=== PATIENT | male | born 1955 | race African-American/Black ===

== ENCOUNTER 2018-02-13 17:56 | Inpatient (IN) | payer BC ==
[2018-02-13] MEDS ORDERED: ACETAMINOPHEN 325 MG TABLET PO ONE (18:18)
--- NOTE | 2018-02-13 18:20 | ER Document Report ---
ED Medical Screen (RME) - General Chief Complaint: Altered Mental Status Stated Complaint: ALTERED MENTAL STATUS Time Seen by Provider: 02/13/18 18:12 Notes: RAPID MEDICAL EVALUATION DISCLOSURE I have seen this patient as part of a Rapid Medical Evaluation and, if applicable, placed any initially appropriate orders. The patient will be seen and fully evaluated, including a full history and physical exam, by a provider ( in Main ED or Fast Track) when a room becomes available. 62-year-old male PMH prostate cancer here with family who states he has been altered over the past day or 2. Yesterday he complained of some dysuria. He also felt like he had a fever but they did not measure his temperature. He is acting as though he is "acting spacey". He has no prior history of bladder infections. They deny any other symptoms. He is actively receiving chemo and radiation. EXAM Somnolent CTAB Tachycardic Mild lower abdominal TTP TRAVEL OUTSIDE OF THE [place] IN LAST 30 DAYS: No - Related Data Allergies/Adverse Reactions: codeine Allergy (Verified 02/13/18 17:58) metformin Allergy (Verified 02/13/18 17:58) Past Medical History - Social History Chew tobacco use (# tins/day): No Frequency of alcohol use: None Drug Abuse: None - Past Medical History Cardiac Medical History: Reports: Hx Hypertension Endocrine Medical History: Reports: Hx Diabetes Mellitus Type 2 Renal/ Medical History: Denies: Hx Peritoneal Dialysis Past Surgical History: Reports: Hx Orthopedic Surgery Physical Exam - Vital signs Vitals: Temp Pulse Resp BP Pulse Ox 100.6 F H 115 H 20 114/68 93 02/13/18 18:01 02/13/18 18:01 02/13/18 18:01 02/13/18 18:01 02/13/18 18:01 Course - Vital Signs Vital signs: Temp Pulse Resp BP Pulse Ox 100.6 F H 115 H 20 114/68 93 02/13/18 18:01 02/13/18 18:01 02/13/18 18:01 02/13/18 18:01 02/13/18 18:01 Doctor's Discharge - Discharge Referrals: LOCALMD,NO [Primary Care Provider] - Follow up as needed
--- NOTE | 2018-02-13 18:46 | RADIOLOGY REPORT (SQ) ---
EXAM DESCRIPTION: CHEST 2 VIEWS COMPLETED DATE/TIME: 02/13/2018 6:28 pm REASON FOR STUDY: EVAL PNEUMONIA COMPARISON: None. EXAM PARAMETERS: NUMBER OF VIEWS: two views TECHNIQUE: Digital Frontal and Lateral radiographic views of the chest acquired. RADIATION DOSE: NA LIMITATIONS: none FINDINGS: LUNGS AND PLEURA: Possible 15 mm nodule in the right lung laterally. MEDIASTINUM AND HILAR STRUCTURES: No masses or contour abnormalities. HEART AND VASCULAR STRUCTURES: Heart normal size. No evidence for failure. BONES: No acute findings. HARDWARE: None in the chest. OTHER: No other significant finding. IMPRESSION: Possible right pulmonary nodule as described. TECHNICAL DOCUMENTATION: JOB ID: [id number] [employer]- All Rights Reserved Reading location - IP/workstation name: [email or web address]
[2018-02-13 19:18] LABS: ABSOLUTE BASOPHILS # (AUTO) 0.1 10^3/uL (0.0-0.2); ABSOLUTE LYMPHOCYTES (AUTO) 1.7 10^3/uL (0.5-4.7); ABSOLUTE MONOCYTES (AUTO) 1.2 10^3/uL (0.1-1.4); ABSOLUTE NEUT (AUTO) 7.4 10^3/uL (1.7-8.2); BASOPHILS % (AUTO) 0.8 % (0-2); EOSINOPHILS % (AUTO) 0.1 % (0-6); HEMATOCRIT 40.7 % (37.9-51.0); HEMOGLOBIN 13.5 g/dL (13.5-17.0); LYMPHOCYTES % (AUTO) 16.7 % (13-45); MEAN CORPUSCULAR HEMOGLOBIN 28.1 pg (27.0-33.4); MEAN CORPUSCULAR HGB CONC 33.2 g/dL (32.0-36.0); MEAN CORPUSCULAR VOLUME 85 fl (80-97); MONOCYTES % (AUTO) 11.9 % (3-13); PLATELET COUNT 267 10^3/uL (150-450); RED CELL DISTRIBUTION WIDTH 15.5 % (11.5-14.0); SEGMENTED NEUTROPHILS % (AUTO) 70.5 % (42-78); TOTAL CELLS COUNTED % (AUTO) 100 %; WHITE BLOOD COUNT 10.4 10^3/uL (4.0-10.5)
--- NOTE | 2018-02-13 19:31 | RADIOLOGY REPORT (SQ) ---
EXAM DESCRIPTION: CT HEAD WITHOUT COMPLETED DATE/TIME: 02/13/2018 7:22 pm REASON FOR STUDY: confusion, cancer; eval COMPARISON: None. TECHNIQUE: Axial images acquired through the brain without intravenous contrast. Images reviewed wi th bone, brain and subdural windows. Additional sagittal and coronal reconstructions were generated. Images stored on PACS. All CT scanners at this facility use dose modulation, iterative reconstruction, and/or weight based d osing when appropriate to reduce radiation dose to as low as reasonably achievable (ALARA). [facility]: Dose Right [facility]: CareDose [facility]: Dose Right [facility]: Teradose 4D [facility]: MailLift RADIATION DOSE: mGy. LIMITATIONS: Evaluation for malignancy limited by lack of IV contrast. FINDINGS: VENTRICLES: Normal size and contour. CEREBRUM: No masses. No hemorrhage. No midline shift. No evidence for acute infarction. Normal gra y/white matter differentiation. No areas of low density in the white matter. CEREBELLUM: No masses. No hemorrhage. No alteration of density. No evidence for acute infarction. EXTRAAXIAL SPACES: No fluid collections. No masses. ORBITS AND GLOBE: No intra- or extraconal masses. Normal contour of globe without masses. CALVARIUM: No fracture. PARANASAL SINUSES: No fluid or mucosal thickening. SOFT TISSUES: No mass or hematoma. OTHER: No other significant finding. IMPRESSION: NORMAL BRAIN CT WITHOUT CONTRAST. Limited by lack of IV contrast. EVIDENCE OF ACUTE STROKE: NO. COMMENT: Quality ID # [id number]: Final reports with documentation of one or more dose reduction techniques (e.g., Automated exposure control, adjustment of the mA and/or kV according to patient size, use of iterative reconstruction technique) TECHNICAL DOCUMENTATION: JOB ID: [id number] [employer]- All Rights Reserved Reading location - IP/workstation name: [email or web address]
[2018-02-13 19:46] LABS: ALANINE AMINOTRANSFERASE 28 U/L (21-72); ALBUMIN 4.6 g/dL (3.5-5.0); ALKALINE PHOSPHATASE 39 U/L (38-126); ANION GAP 16 (5-19); ASPARTATE AMINO TRANSFERASE 51 U/L (17-59); BILIRUBIN,DIRECT 0.6 mg/dL (0.0-0.4); BLOOD UREA NITROGEN 29 mg/dL (7-20); CALCIUM 10.2 mg/dL (8.4-10.2); CARBON DIOXIDE 25 mmol/L (22-30); CHLORIDE 101 mmol/L (98-107); GLUCOSE 71 mg/dL (75-110); LIPASE 113.8 U/L (23-300); SODIUM 141.7 mmol/L (137-145); TOTAL PROTEIN 7.8 g/dL (6.3-8.2)
[2018-02-13] MEDS ORDERED: NORMAL SALINE 1000 ML 1,000 ML IV ONE ×2 (20:17→20:25)
[2018-02-13] MEDS ORDERED: CEFEPIME 2 GM/D5W RTU 2 GM/50 ML RTUPB IV ONE (20:24)
--- NOTE | 2018-02-13 20:24 | ER Document Report ---
ED General - General Chief Complaint: Altered Mental Status Stated Complaint: ALTERED MENTAL STATUS Time Seen by Provider: 02/13/18 18:12 Mode of Arrival: Ambulatory Information source: Patient Notes: Patient is a 62-year-old male presenting with dysuria, fever and not acting himself according to his . Patient's reports that last night patient began having burning with urination and had chills. Patient did go to work this morning however he was sent home as they stated that he did not appear well. Patient currently being treated with chemotherapy for prostate cancer. Patient's other past medical history includes hypertension and diabetes. Patient denies any vomiting however patient reports 2 episodes of diarrhea today. No recent antibiotic use. TRAVEL OUTSIDE OF THE [place] IN LAST 30 DAYS: No - Related Data Allergies/Adverse Reactions: codeine Allergy (Verified 02/13/18 17:58) metformin Allergy (Verified 02/13/18 17:58) Past Medical History - General Information source: Patient, Relative - Social History Smoking Status: Never Smoker Chew tobacco use (# tins/day): No Frequency of alcohol use: None Drug Abuse: None Lives with: Spouse/Significant other Family History: Reviewed & Not Pertinent Patient has suicidal ideation: No Patient has homicidal ideation: No - Past Medical History Cardiac Medical History: Reports: Hx Hypertension Endocrine Medical History: Reports: Hx Diabetes Mellitus Type 2 Renal/ Medical History: Reports: Other - Prostate cancer. Denies: Hx Peritoneal Dialysis Past Surgical History: Reports: Hx Orthopedic Surgery - Immunizations Immunizations up to date: Yes Review of Systems - Review of Systems Constitutional: Chills, Fever, Weakness EENT: No symptoms reported Cardiovascular: No symptoms reported Respiratory: No symptoms reported Gastrointestinal: Diarrhea. denies: Nausea, Vomiting Genitourinary: Burning, Dysuria. denies: Flank pain Male Genitourinary: See HPI Musculoskeletal: No symptoms reported Skin: No symptoms reported Hematologic/Lymphatic: No symptoms reported Neurological/Psychological: Confusion Physical Exam - Vital signs Vitals: Temp Pulse Resp BP Pulse Ox 100.6 F H 115 H 20 114/68 93 02/13/18 18:01 02/13/18 18:01 02/13/18 18:01 02/13/18 18:01 02/13/18 18:01 Course - Re-evaluation Re-evalutation: 62-year-old male patient presenting with chief complaint of dysuria, fever and altered mental status. Patient's reports that the symptoms began last night and worsened today. Patient currently being treated with chemotherapy for prostate cancer. On arrival to the emergency department patient is febrile at 100.6, tachycardic at 115, normotensive with blood pressure 114/68. Patient mildly hypoxic at 93% on room air, patient's denies any history of any respiratory issues to include CHF or COPD. On initial evaluation patient appears very weak, lung sounds are clear bilaterally, patient has no CVA tenderness. Patient is able to answer all questions however he is slightly slow to respond. Initial laboratory workup reveals an unremarkable CBC, no leukocytosis. Comprehensive metabolic panel with BUN of 29, creatinine 1.37. CMP otherwise unremarkable. Lipase is normal. Lactic acid is 1.4. Patient was given 650 mg of Tylenol in triage. Awaiting temperature recheck. Patient's remains mildly tachycardic with a heart rate of 105 as well as mild hypotension with a blood pressure of 102/52. Patient was placed on 2 L nasal cannula for resting oxygen saturation of 92%. Early consultation was done with Dr. Fink, as I am concerned this patient is septic. No urinalysis resulted yet. Patient will be given 2 L normal saline and will be started on cefepime. Will monitor closely. Patient and family members are up-to-date on plan of care. Urinalysis reveals positive blood, positive nitrates and 139 white blood cells. Consulted Dr. Ledesma, hospitalist for admission, patient accepted. - Vital Signs Vital signs: Temp Pulse Resp BP Pulse Ox 101.1 F H 90 19 84/48 L 100 02/14/18 01:41 02/14/18 01:41 02/14/18 00:26 02/14/18 01:41 02/14/18 01:41 - Laboratory Result Diagrams: 02/13/18 18:44 02/13/18 18:44 Laboratory results interpreted by me: 02/13/18 02/13/18 02/13/18 18:44 18:44 20:36 RDW 15.5 H BUN 29 H Creatinine 1.37 H Est GFR (Non-Af Amer) 53 L Glucose 71 L Direct Bilirubin 0.6 H Urine Protein 100 H Urine Glucose (UA) 150 H Urine Ketones TRACE H Urine Blood MODERATE H Urine Nitrite POSITIVE H Urine Urobilinogen 4.0 H Ur Leukocyte Esterase SMALL H - Diagnostic Test Radiology reviewed: Reports reviewed - EKG Interpretation by Me EKG shows normal: Sinus rhythm Rate: Normal Rhythm: NSR Discharge - Discharge Clinical Impression: Urinary tract infection Qualifiers: Urinary tract infection type: site unspecified Hematuria presence: with hematuria Qualified Code(s): N39.0 - Urinary tract infection, site not specified Condition: Stable Disposition: ADMITTED INPATIENT Admitting Provider: Hospitalist Unit Admitted: Telemetry
[2018-02-13 21:07] LABS: APPEARANCE,URINE CLOUDY; BILIRUBIN,URINE NEGATIVE (NEGATIVE); COLOR,URINE YELLOW; GLUCOSE, URINE 150 mg/dL (NEGATIVE); KETONES,URINE TRACE mg/dL (NEGATIVE); LEUKOCYTE ESTERASE,URINE SMALL (NEGATIVE); NITRITE,URINE POSITIVE (NEGATIVE); PROTEIN,URINE 100 mg/dL (NEGATIVE); URINE SPECIFIC GRAVITY 1.023
[2018-02-13] MEDS ORDERED: ONDANSETRON 4 MG TAB.RAPDIS PO PRN (21:43)
[2018-02-13] MEDS ORDERED: GLUCAGON,HUMAN RECOMB 1 MG INJ IM PRN (21:48)
[2018-02-13] MEDS ORDERED: DEXTROSE 50%-WATER 25 GM/50 ML DISP.SYRIN IV PRN ×2 (21:48)
[2018-02-13] MEDS ORDERED: INSULIN LISPRO 100 UNIT/ML 3 ML VIAL SUBCUT PRN (21:48)
[2018-02-13] MEDS ORDERED: DEXTROSE 40% GEL 15 GM TUBE PO PRN ×2 (21:48)
[2018-02-13] MEDS ORDERED: NORMAL SALINE 1000 ML 1,000 ML IV PRN (21:49)
--- NOTE | 2018-02-13 21:59 | PDOC H&P ---
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 Patient has also associated 2 episodes watery diarrhea. His urine analysis shows pyuria, positive for nitrite and leukocyte esterase. His BMP shows creatinine of 1.37. Endorses headache but no dizziness, blurring of vision or any seizure activity. Past Medical History Cardiac Medical History: Reports: Hypertension Endocrine Medical History: Reports: Diabetes Mellitus Type 2 Renal/ Medical History: Reports: Other - Prostate cancer Past Surgical History Past Surgical History: Reports: Orthopedic Surgery Social History Lives with: Spouse/Significant other Smoking Status: Never Smoker Frequency of Alcohol Use: None Hx Recreational Drug Use: No Drugs: None - Advance Directive Resuscitation Status: Full Code Family History Family History: Reviewed & Not Pertinent, Hypertension Parental Family History Reviewed: Yes Children Family History Reviewed: Yes Sibling(s) Family History Reviewed.: Yes Medication/Allergy Allergies/Adverse Reactions: codeine Allergy (Verified 02/13/18 17:58) metformin Allergy (Verified 02/13/18 17:58) Review of Systems Constitutional: PRESENT: fatigue, fever(s) Eyes: ABSENT: visual disturbances Respiratory: ABSENT: cough, hemoptysis Genitourinary: PRESENT: dysuria Musculoskeletal: PRESENT: as per HPI Neurological: PRESENT: as per HPI Psychiatric: PRESENT: as per HPI Physical Exam Vital Signs: Temp Pulse Resp BP Pulse Ox 100.6 F H 115 H 14 141/76 H 98 02/13/18 18:01 02/13/18 18:01 02/13/18 19:08 02/13/18 19:10 02/13/18 20:18 General appearance: PRESENT: no acute distress, well-developed, well-nourished Head exam: PRESENT: atraumatic, normocephalic Eye exam: PRESENT: conjunctiva pink, EOMI, PERRLA. ABSENT: scleral icterus Ear exam: PRESENT: normal external ear exam Mouth exam: PRESENT: moist, tongue midline Neck exam: ABSENT: carotid bruit, JVD, lymphadenopathy, thyromegaly Respiratory exam: PRESENT: clear to auscultation cali. ABSENT: rales, rhonchi, wheezes Cardiovascular exam: PRESENT: RRR. ABSENT: diastolic murmur, rubs, systolic murmur Pulses: PRESENT: normal dorsalis pedis pul Vascular exam: PRESENT: normal capillary refill GI/Abdominal exam: PRESENT: normal bowel sounds, soft. ABSENT: distended, guarding, mass, organolmegaly, rebound, tenderness Rectal exam: PRESENT: deferred Extremities exam: PRESENT: full ROM. ABSENT: calf tenderness, clubbing, pedal edema Neurological exam: PRESENT: alert, awake, oriented to person, oriented to place , oriented to time, oriented to situation. ABSENT: motor sensory deficit Psychiatric exam: PRESENT: appropriate affect, normal mood. ABSENT: homicidal ideation, suicidal ideation Skin exam: PRESENT: dry, intact, warm. ABSENT: cyanosis, rash Results Impressions: Chest X-Ray 02/13/18 18:17 IMPRESSION: Possible right pulmonary nodule as described. Head CT 02/13/18 18:17 IMPRESSION: NORMAL BRAIN CT WITHOUT CONTRAST. Limited by lack of IV contrast. EVIDENCE OF ACUTE STROKE: NO. Assessment & Plan - Diagnosis (1) Complicated urinary tract infection Is this a current diagnosis for this admission?: Yes Plan: Patient has been started on ceftriaxone. We will adjust his antibiotics based on his clinical response and urine culture result. (2) Acute kidney injury Is this a current diagnosis for this admission?: Yes Plan: It seems tomorrow for prerenal azotemia. Will gently hydrate him. (3) Type 2 diabetes mellitus Is this a current diagnosis for this admission?: Yes Plan: Patient has been started on sliding scale. And will continue his home medication (4) Hypertension Is this a current diagnosis for this admission?: Yes Plan: Continue his home medication. (5) Prostate cancer Is this a current diagnosis for this admission?: Yes Plan: Management per his primary oncologist - Inpatient Certification Medical Necessity: Need Close Monitoring Due to Risk of Patient Decompensation, Need For IV Fluids, Need for IV Antibiotics
--- NOTE | 2018-02-14 00:13 | EKG REPORT ---
SEVERITY:- NORMAL ECG - SINUS RHYTHM : Confirmed by: Eve Gabriel MD 14-Feb-2018 00:12:49
[2018-02-14] MEDS: ACETAMINOPHEN 325 MG TABLET PO PRN ×2 (00:21→20:11)
[2018-02-14] MEDS: NORMAL SALINE 1000 ML 1,000 ML IV SCH ×2 (02:36→02:39)
[2018-02-14] MEDS ORDERED: NORMAL SALINE 1000 ML 1,000 ML IV ONE (02:45)
[2018-02-14 06:34] LABS: ABSOLUTE LYMPHOCYTES (AUTO) 0.4 10^3/uL (0.5-4.7); ABSOLUTE MONOCYTES (AUTO) 0.9 10^3/uL (0.1-1.4); ABSOLUTE NEUT (AUTO) 5.4 10^3/uL (1.7-8.2); BASOPHILS % (AUTO) 0.7 % (0-2); HEMATOCRIT 31.5 % (37.9-51.0); LYMPHOCYTES % (AUTO) 6.5 % (13-45); MEAN CORPUSCULAR HEMOGLOBIN 28.3 pg (27.0-33.4); MEAN CORPUSCULAR HGB CONC 33.4 g/dL (32.0-36.0); MEAN CORPUSCULAR VOLUME 85 fl (80-97); MONOCYTES % (AUTO) 13.2 % (3-13); PLATELET COUNT 198 10^3/uL (150-450); RED BLOOD COUNT 3.71 10^6/uL (4.35-5.55); RED CELL DISTRIBUTION WIDTH 16.1 % (11.5-14.0); SEGMENTED NEUTROPHILS % (AUTO) 79.6 % (42-78); TOTAL CELLS COUNTED % (AUTO) 100 %; WHITE BLOOD COUNT 6.8 10^3/uL (4.0-10.5)
[2018-02-14 06:38] LABS: ANION GAP 10 (5-19); BLOOD UREA NITROGEN 27 mg/dL (7-20); CALCIUM 7.9 mg/dL (8.4-10.2); CARBON DIOXIDE 24 mmol/L (22-30); CHLORIDE 108 mmol/L (98-107); GLUCOSE 77 mg/dL (75-110); POTASSIUM 3.6 mmol/L (3.6-5.0)
[2018-02-14 06:54] LABS: HEMOGLOBIN 10.5 g/dL (13.5-17.0)
[2018-02-14] MEDS: LANSOPRAZOLE 30 MG TAB.RAP.DR PO SCH (07:04)
[2018-02-14] MEDS ORDERED: INSULIN LISPRO 100 UNIT/ML 3 ML VIAL SUBCUT PRN (08:46)
[2018-02-14] MEDS: LACTOBACILLUS ACIDOPHILUS 250 MG TAB PO SCH ×2 (10:25→17:47)
[2018-02-14] MEDS: CEFTRIAXONE 2 GM/D5W RTU 2 GM/50 ML RTUPB IV SCH (10:25)
[2018-02-14] MEDS: ENOXAPARIN SODIUM INJ 40 MG/0.4 ML DISP.SYRIN SUBCUT SCH (10:25)
[2018-02-14] MEDS ORDERED: INSULIN LISPRO 100 UNIT/ML 3 ML VIAL SUBCUT SCH (11:00)
[2018-02-14] MEDS ORDERED: BUTALB/ACETAMINOPHEN/CAFFEINE 1 TAB EACH PO ONE (11:11)
[2018-02-14] MEDS ORDERED: BUTALB/ACETAMINOPHEN/CAFFEINE 1 TAB EACH PO PRN (11:12)
--- NOTE | 2018-02-14 11:55 | PDOC PROGRESS REPORT ---
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 The patient was diagnosed with urinary tract infection and acute renal failure and was started on Rocephin and IV fluids. He is complaining of a headache and reduced appetite. Dysuria improved. Reason For Visit: COMPLICATED UTI. ACUTE KIDNEY INJURY Physical Exam Vital Signs: Temp Pulse Resp BP Pulse Ox 98.3 F 91 19 99/52 L 100 02/14/18 06:53 02/14/18 06:53 02/14/18 00:26 02/14/18 06:53 02/14/18 03:00 Intake & Output 02/13/18 02/14/18 02/15/18 06:59 06:59 06:59 Intake Total 22 Output Total 400 Balance -378 Weight 102.4 kg General appearance: PRESENT: no acute distress, well-developed, well-nourished Head exam: PRESENT: normocephalic Ear exam: PRESENT: normal external ear exam Mouth exam: PRESENT: moist Neck exam: ABSENT: tracheal deviation Respiratory exam: PRESENT: symmetrical, unlabored. ABSENT: wheezes Cardiovascular exam: PRESENT: RRR GI/Abdominal exam: PRESENT: normal bowel sounds, soft. ABSENT: tenderness Rectal exam: PRESENT: deferred Extremities exam: ABSENT: pedal edema Neurological exam: PRESENT: alert, awake, oriented to person, oriented to place , oriented to time, oriented to situation Psychiatric exam: PRESENT: appropriate affect Results Laboratory Results: 02/14/18 05:14 02/14/18 05:14 02/14/18 02/14/18 05:14 05:14 WBC 6.8 RBC 3.71 L Hgb 10.5 L D Hct 31.5 L MCV 85 MCH 28.3 MCHC 33.4 RDW 16.1 H Plt Count 198 Seg Neutrophils % 79.6 H Lymphocytes % 6.5 L Monocytes % 13.2 H Eosinophils % 0.0 Basophils % 0.7 Absolute Neutrophils 5.4 Absolute Lymphocytes 0.4 L Absolute Monocytes 0.9 Absolute Eosinophils 0.0 Absolute Basophils 0.0 Sodium 142.0 Potassium 3.6 Chloride 108 H Carbon Dioxide 24 Anion Gap 10 BUN 27 H Creatinine 1.26 H Est GFR ( Amer) > 60 Est GFR (Non-Af Amer) 58 L Glucose 77 Calcium 7.9 L Impressions: Chest X-Ray 02/13/18 18:17 IMPRESSION: Possible right pulmonary nodule as described. Head CT 02/13/18 18:17 IMPRESSION: NORMAL BRAIN CT WITHOUT CONTRAST. Limited by lack of IV contrast. EVIDENCE OF ACUTE STROKE: NO. Assessment & Plan - Diagnosis (1) Acute kidney injury Is this a current diagnosis for this admission?: Yes Plan: Continue IV fluids. Monitor renal function. Avoid nephrotoxic agents. (2) Complicated urinary tract infection Is this a current diagnosis for this admission?: Yes Plan: Day 2 of antibiotics. Follow-up on urine culture. (3) Hypertension Is this a current diagnosis for this admission?: Yes Plan: Stable. Blood pressures are low normal. (4) Prostate cancer Is this a current diagnosis for this admission?: Yes Plan: Outpatient urology follow-up- Dr. Durán (5) Type 2 diabetes mellitus Is this a current diagnosis for this admission?: Yes Plan: Insulin sliding scale. (6) Headache Is this a current diagnosis for this admission?: Yes Plan: Fioricet prn - Time Time Spent with patient: 25-34 minutes
[2018-02-15 05:30] LABS: BLOOD UREA NITROGEN 17 mg/dL (7-20); CALCIUM 7.9 mg/dL (8.4-10.2); GLUCOSE 89 mg/dL (75-110); PHOSPHORUS 1.8 mg/dL (2.5-4.5)
[2018-02-15 05:42] LABS: HEMOGLOBIN 9.8 g/dL (13.5-17.0); MEAN CORPUSCULAR HEMOGLOBIN 28.7 pg (27.0-33.4); MEAN CORPUSCULAR HGB CONC 33.9 g/dL (32.0-36.0); MEAN CORPUSCULAR VOLUME 85 fl (80-97); PLATELET COUNT 170 10^3/uL (150-450); RED BLOOD COUNT 3.42 10^6/uL (4.35-5.55); RED CELL DISTRIBUTION WIDTH 16.1 % (11.5-14.0)
[2018-02-15 05:47] LABS: CARBON DIOXIDE 27 mmol/L (22-30); CHLORIDE 111 mmol/L (98-107); POTASSIUM 3.8 mmol/L (3.6-5.0); SODIUM 143.5 mmol/L (137-145)
[2018-02-15 05:53] LABS: ANION GAP 6 (5-19)
[2018-02-15 06:11] LABS: WHITE BLOOD COUNT 2.9 10^3/uL (4.0-10.5)
[2018-02-15 06:28] LABS: ABSOLUTE LYMPHOCYTES# (MANUAL) 0.3 10^3/uL (0.5-4.7); ABSOLUTE MONOCYTES # (MANUAL) 0.5 10^3/uL (0.1-1.4); BASOPHILS % (MANUAL) 1 % (0-2); EOSINOPHILS % (MANUAL) 0 % (0-6); LYMPHOCYTES % (MANUAL) 11 % (13-45); MONOCYTES % (MANUAL) 18 % (3-13); SEGMENTED NEUTROPHILS % (MAN) 70 % (42-78); TOTAL CELLS COUNTED 100
[2018-02-15 06:29] LABS: ANISOCYTOSIS 1+; OVALOCYTES 1+; PLATELET COMMENT ADEQUATE; POLYCHROMASIA 1+
[2018-02-15] MEDS: LANSOPRAZOLE 30 MG TAB.RAP.DR PO SCH (06:40)
[2018-02-15] MEDS ORDERED: ABIRATERONE ACETATE 1000 MG PO SCH (08:00)
[2018-02-15] MEDS ORDERED: (PENDING PHARMACY ID) (Saxagliptin Hcl [Onglyza] 5 MG) PO SCH (10:00)
[2018-02-15] MEDS ORDERED: (PENDING PHARMACY ID) (Fenofibric Acid (Choline) [Fenofibric Acid] 135 MG) PO SCH (10:00)
[2018-02-15] MEDS: CEFTRIAXONE 2 GM/D5W RTU 2 GM/50 ML RTUPB IV SCH (10:38)
[2018-02-15] MEDS: ENOXAPARIN SODIUM INJ 40 MG/0.4 ML DISP.SYRIN SUBCUT SCH (10:38)
[2018-02-15] MEDS: LACTOBACILLUS ACIDOPHILUS 250 MG TAB PO SCH ×2 (10:39→17:56)
[2018-02-15] MEDS: PHOSPHORUS #1 250 MG TABLET PO SCH ×2 (10:39→15:57)
[2018-02-15] MEDS: PREDNISONE 5 MG TABLET PO SCH (10:40)
[2018-02-15] MEDS: FENOFIBRATE NANOCRYSTALLIZED 145 MG TABLET PO SCH (10:43)
[2018-02-15] MEDS: SITAGLIPTIN PHOSPHATE 50 MG TABLET PO SCH (10:43)
--- NOTE | 2018-02-15 11:42 | PDOC CONSULTATION ---
Consultation Consult Date: 02/15/18 Consult reason:: urinary tract infection, prostate cancer. History of Present Illness Admission Date/PCP: 02/13/18 21:48 ANGEL MAJOR MD History of Present Illness: MELECIO FUENTES is a 62 year old male that became lethargic and confused on . He was brought to the ER by family and found to be septic with a urinary source and admitted. He has improved well after being placed on antibiotics and given fluid resuscitation. Culture of the urine is pending (gram negative rods prelim), but antibiotics given have apparently worked. He is now feeling much better and is up walking at this point. He was diagnosed with prostate cancer in 2006 and underwent a radical retropubic prostatectomy in 2006. He received adjuvant XRT due to what sounds like positive margins after surgery. Since that time zay has received Provenge and is now non Zytiga daily. His PSA has been at a maximum of 99, but is recently 12 after treatment according to the patient. Past Medical History Cardiac Medical History: Reports: Hypertension Endocrine Medical History: Reports: Diabetes Mellitus Type 2 Renal/ Medical History: Reports: Other - Prostate cancer Psychiatric Medical History: Denies: Depression Past Surgical History Past Surgical History: Reports: Orthopedic Surgery, Other - Radical Retropubic Prostatectomy - 2006 Social History Lives with: Spouse/Significant other Smoking Status: Never Smoker Number of Years Smokin Last Time Smoked: 1997 Frequency of Alcohol Use: None Hx Recreational Drug Use: No Drugs: None Hx Prescription Drug Abuse: No - Advance Directive Resuscitation Status: Full Code Family History Family History: Reviewed & Not Pertinent Parental Family History Reviewed: No Children Family History Reviewed: No Sibling(s) Family History Reviewed.: No Medication/Allergy Home Medications: Abiraterone Acetate [Zytiga] 1,000 mg PO QAM 02/14/18 Amlodipine/Valsartan/Hcthiazid [Tprxw-Wijic-Jarx 5-160-25 mg] 1 each PO DAILY Empagliflozin [Jardiance] 10 mg PO DAILY 02/14/18 Fenofibric Acid (Choline) [Fenofibric Acid] 135 mg PO DAILY 02/14/18 Glipizide [Glipizide ER] 5 mg PO Q12 02/14/18 Insulin Glargine,Hum.rec.anlog [Basaglar Kwikpen U-100] 18 unit SQ DAILY Prednisone [Deltasone 5 mg Tablet] 5 mg PO QAM 02/14/18 Ranitidine HCl [Zantac 150 mg Tablet] 150 mg PO BID 02/14/18 Rosuvastatin Calcium [Crestor 20 mg Tablet] 20 mg PO QHS 02/14/18 Saxagliptin HCl [Onglyza] 5 mg PO DAILY 02/14/18 Allergies/Adverse Reactions: codeine Allergy (Verified 02/14/18 10:25) UPSET STOMACH, FOGGY HEAD, HEADACHE metformin Allergy (Verified 02/14/18 10:25) Hives Physical Exam Vital Signs: Temp Pulse Resp BP Pulse Ox 98.3 F 65 18 109/54 L 99 02/15/18 03:23 02/15/18 03:23 02/15/18 03:23 02/15/18 03:23 02/15/18 03:23 Intake & Output 02/14/18 02/15/18 02/16/18 06:59 06:59 06:59 Intake Total 22 8826 Output Total 400 1200 Balance -378 7626 Weight 102.4 kg 101.9 kg Results Laboratory Results: 02/15/18 04:03 02/15/18 04:03 02/15/18 02/15/18 04:03 04:03 WBC 2.9 L D RBC 3.42 L Hgb 9.8 L Hct 29.0 L MCV 85 MCH 28.7 MCHC 33.9 RDW 16.1 H Plt Count 170 Seg Neutrophils % Not Reportable Lymphocytes % Not Reportable Monocytes % Not Reportable Eosinophils % Not Reportable Basophils % Not Reportable Absolute Neutrophils Not Reportable Absolute Lymphocytes Not Reportable Absolute Monocytes Not Reportable Absolute Eosinophils Not Reportable Absolute Basophils Not Reportable Sodium 143.5 Potassium 3.8 Chloride 111 H Carbon Dioxide 27 Anion Gap 6 BUN 17 Creatinine 1.00 Est GFR ( Amer) > 60 Est GFR (Non-Af Amer) > 60 Glucose 89 Calcium 7.9 L Phosphorus 1.8 L Magnesium 2.1 Impressions: Chest X-Ray 02/13/18 18:17 IMPRESSION: Possible right pulmonary nodule as described. Head CT 02/13/18 18:17 IMPRESSION: NORMAL BRAIN CT WITHOUT CONTRAST. Limited by lack of IV contrast. EVIDENCE OF ACUTE STROKE: NO. Assessment & Plan - Diagnosis (1) Complicated urinary tract infection Is this a current diagnosis for this admission?: Yes Plan: Await urine culture results and discharge home on appropriate po antibiotic for at least 10 days (2) Prostate cancer Is this a current diagnosis for this admission?: Yes Plan: continue zytiga - Time Time Spent: 30 to 50 Minutes Anticipated discharge: Home - needs urine culture results to have appropriate po antibiotic prior to discharge - Plan Summary Plan Summary: 1. Await urine culture, switch to po antibiotics when able. Home with 10 days of antibiotic treatment to followup with his promary care. 2. Continue Zytiga and followup with his urologist and oncologist.
[2018-02-15] MEDS ORDERED: NORMAL SALINE 1000 ML 1,000 ML IV PRN (13:40)
--- NOTE | 2018-02-15 13:41 | PDOC PROGRESS REPORT ---
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 The patient was diagnosed with urinary tract infection and acute renal failure and was started on Rocephin and IV fluids. Urine cultures growing GNR- ID and sensitivities pending. He feels much better today. Reason For Visit: COMPLICATED UTI. ACUTE KIDNEY INJURY Physical Exam Vital Signs: Temp Pulse Resp BP Pulse Ox 98.3 F 65 18 109/54 L 99 02/15/18 03:23 02/15/18 03:23 02/15/18 03:23 02/15/18 03:23 02/15/18 03:23 Intake & Output 02/14/18 02/15/18 02/16/18 06:59 06:59 06:59 Intake Total 22 8826 Output Total 400 1200 Balance -378 7626 Weight 102.4 kg 101.9 kg General appearance: PRESENT: no acute distress Head exam: PRESENT: normocephalic Ear exam: PRESENT: normal external ear exam Mouth exam: PRESENT: moist Neck exam: ABSENT: tracheal deviation Respiratory exam: PRESENT: symmetrical, unlabored Cardiovascular exam: PRESENT: RRR GI/Abdominal exam: PRESENT: normal bowel sounds, soft. ABSENT: tenderness Rectal exam: PRESENT: deferred Neurological exam: PRESENT: alert, awake, oriented to person, oriented to place , oriented to time, oriented to situation Psychiatric exam: PRESENT: appropriate affect Results Laboratory Results: 02/15/18 04:03 02/15/18 04:03 02/15/18 02/15/18 04:03 04:03 WBC 2.9 L D RBC 3.42 L Hgb 9.8 L Hct 29.0 L MCV 85 MCH 28.7 MCHC 33.9 RDW 16.1 H Plt Count 170 Seg Neutrophils % Not Reportable Lymphocytes % Not Reportable Monocytes % Not Reportable Eosinophils % Not Reportable Basophils % Not Reportable Absolute Neutrophils Not Reportable Absolute Lymphocytes Not Reportable Absolute Monocytes Not Reportable Absolute Eosinophils Not Reportable Absolute Basophils Not Reportable Sodium 143.5 Potassium 3.8 Chloride 111 H Carbon Dioxide 27 Anion Gap 6 BUN 17 Creatinine 1.00 Est GFR ( Amer) > 60 Est GFR (Non-Af Amer) > 60 Glucose 89 Calcium 7.9 L Phosphorus 1.8 L Magnesium 2.1 Impressions: Chest X-Ray 02/13/18 18:17 IMPRESSION: Possible right pulmonary nodule as described. Head CT 02/13/18 18:17 IMPRESSION: NORMAL BRAIN CT WITHOUT CONTRAST. Limited by lack of IV contrast. EVIDENCE OF ACUTE STROKE: NO. Assessment & Plan - Diagnosis (1) Acute kidney injury Is this a current diagnosis for this admission?: Yes Plan: Improving. Continue IV fluids. Monitor renal function. Avoid nephrotoxic agents. (2) Complicated urinary tract infection Is this a current diagnosis for this admission?: Yes Plan: Day 2 of antibiotics. Follow-up on urine culture. (3) Hypertension Is this a current diagnosis for this admission?: Yes Plan: Stable. Blood pressures are low normal. (4) Prostate cancer Is this a current diagnosis for this admission?: Yes Plan: On [facility] Outpatient urology follow-up- Dr. Durán (5) Type 2 diabetes mellitus Is this a current diagnosis for this admission?: Yes Plan: Insulin sliding scale. (6) Headache Is this a current diagnosis for this admission?: Yes Plan: Fioricet prn - Time Time Spent with patient: 25-34 minutes
[2018-02-15] MEDS ORDERED: (PENDING PHARMACY ID) (Rosuvastatin Calcium [Crestor 20 Mg Tablet] 20 MG) PO SCH (22:00)
[2018-02-15] MEDS ORDERED: ATORVASTATIN CALCIUM 40 MG TABLET PO SCH (22:00)
[2018-02-16 05:20] LABS: ABSOLUTE LYMPHOCYTES (AUTO) 0.8 10^3/uL (0.5-4.7); ABSOLUTE MONOCYTES (AUTO) 0.4 10^3/uL (0.1-1.4); ABSOLUTE NEUT (AUTO) 2.8 10^3/uL (1.7-8.2); BASOPHILS % (AUTO) 0.7 % (0-2); EOSINOPHILS % (AUTO) 0.2 % (0-6); HEMATOCRIT 28.3 % (37.9-51.0); HEMOGLOBIN 9.6 g/dL (13.5-17.0); LYMPHOCYTES % (AUTO) 20.3 % (13-45); MEAN CORPUSCULAR HEMOGLOBIN 28.5 pg (27.0-33.4); MEAN CORPUSCULAR HGB CONC 33.9 g/dL (32.0-36.0); MEAN CORPUSCULAR VOLUME 84 fl (80-97); MONOCYTES % (AUTO) 10.3 % (3-13); PLATELET COUNT 182 10^3/uL (150-450); RED BLOOD COUNT 3.37 10^6/uL (4.35-5.55); RED CELL DISTRIBUTION WIDTH 15.7 % (11.5-14.0); SEGMENTED NEUTROPHILS % (AUTO) 68.5 % (42-78); TOTAL CELLS COUNTED % (AUTO) 100 %; WHITE BLOOD COUNT 4.2 10^3/uL (4.0-10.5)
[2018-02-16 05:58] LABS: ANION GAP 8 (5-19); BLOOD UREA NITROGEN 18 mg/dL (7-20); CALCIUM 8.1 mg/dL (8.4-10.2); CARBON DIOXIDE 26 mmol/L (22-30); CHLORIDE 111 mmol/L (98-107); GLUCOSE 76 mg/dL (75-110); POTASSIUM 3.5 mmol/L (3.6-5.0); SODIUM 145.3 mmol/L (137-145)
[2018-02-16] MEDS: LANSOPRAZOLE 30 MG TAB.RAP.DR PO SCH (06:23)
[2018-02-16] MEDS: PHOSPHORUS #1 250 MG TABLET PO SCH ×2 (08:20→11:14)
[2018-02-16] MEDS: CEFTRIAXONE 2 GM/D5W RTU 2 GM/50 ML RTUPB IV SCH (10:08)
[2018-02-16] MEDS: LACTOBACILLUS ACIDOPHILUS 250 MG TAB PO SCH (10:09)
[2018-02-16] MEDS: PREDNISONE 5 MG TABLET PO SCH (10:10)
[2018-02-16] MEDS: FENOFIBRATE NANOCRYSTALLIZED 145 MG TABLET PO SCH (10:10)
[2018-02-16] MEDS: SITAGLIPTIN PHOSPHATE 50 MG TABLET PO SCH (10:10)
[2018-02-16] MEDS: ENOXAPARIN SODIUM INJ 40 MG/0.4 ML DISP.SYRIN SUBCUT SCH (10:10)
--- NOTE | 2018-02-16 11:32 | PDOC DISCHARGE SUMMARY ---
General - Admit/Disc Date/PCP Admission Date/Primary Care Provider: 02/13/18 21:48 ANGEL MAJOR MD Discharge Date: 02/16/18 - Discharge Diagnosis (1) Acute kidney injury Is this a current diagnosis for this admission?: Yes (2) Complicated urinary tract infection Is this a current diagnosis for this admission?: Yes (3) Hypertension Is this a current diagnosis for this admission?: Yes (4) Prostate cancer Is this a current diagnosis for this admission?: Yes (5) Type 2 diabetes mellitus Is this a current diagnosis for this admission?: Yes (6) Headache Is this a current diagnosis for this admission?: Yes - Additional Information Resuscitation Status: Full Code Discharge Diet: As Tolerated Discharge Activity: Activity As Tolerated Prescriptions: Butalb/Acetaminophen/Caffeine [Fioricet (50-325-40 mg) Tablet] 1 tab PO Q6HP PRN 3 Days #10 each PRN Reason: Ciprofloxacin HCl [Cipro 500 mg Tablet] 500 mg PO Q12 5 Days #11 tablet Lactobacillus Acidophilus [Bacid 250 mg Tablet] 500 mg PO DAILY 14 Days #14 tab Phosphorus #1 [K-Phos Neutral 250 mg Tablet] 500 mg PO AC 3 Days #9 tablet Home Medications: Abiraterone Acetate [Zytiga 250 mg Tablet] 1,000 mg PO QAM 02/14/18 Amlodipine/Valsartan/Hcthiazid [Shxrq-Tvpxo-Gzrz 5-160-25 mg] 1 each PO DAILY Empagliflozin [Jardiance] 10 mg PO DAILY 02/14/18 Fenofibric Acid (Choline) [Fenofibric Acid] 135 mg PO DAILY 02/14/18 Glipizide [Glipizide ER] 5 mg PO Q12 02/14/18 Insulin Glargine,Hum.rec.anlog [Basaglar Kwikpen U-100] 18 unit SQ DAILY Prednisone [Deltasone 5 mg Tablet] 5 mg PO QAM 02/14/18 Ranitidine HCl [Zantac 150 mg Tablet] 150 mg PO BID 02/14/18 Rosuvastatin Calcium [Crestor 20 mg Tablet] 20 mg PO QHS 02/14/18 Saxagliptin HCl [Onglyza] 5 mg PO DAILY 02/14/18 Abiraterone Acetate [Zytiga 250 mg Tablet] 1,000 mg PO .QAM 02/16/18 Butalb/Acetaminophen/Caffeine [Fioricet (50-325-40 mg) Tablet] 1 tab PO Q6HP PRN 3 Days #10 each 02/16/18 Ciprofloxacin HCl [Cipro 500 mg Tablet] 500 mg PO Q12 5 Days #11 tablet Lactobacillus Acidophilus [Bacid 250 mg Tablet] 500 mg PO DAILY 14 Days #14 tab 02/16/18 Phosphorus #1 [K-Phos Neutral 250 mg Tablet] 500 mg PO AC 3 Days #9 tablet 02/16 History of Present Illness History of Present Illness: 62-year-old gentleman with past medical history of 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 The patient was diagnosed with urinary tract infection and acute renal failure and was started on Rocephin and IV fluids. Urine cultures sensitive to all tested antibiotics except for nitrofurantoin and tetracycline. His renal failure has resolved. He is feeling much better. He was complaining of some headache during his hospital stay and this resolved with Fioricet. The patient's appetite has improved and he is stable for discharge home. He is to follow-up with his primary care physician and his urologist in 1 week. Prescription for ciprofloxacin was given. Hospital Course Hospital Course: As above Physical Exam Vital Signs: Temp Pulse Resp BP Pulse Ox 98.5 F 70 16 123/62 99 02/16/18 08:11 02/16/18 08:11 02/16/18 08:11 02/16/18 08:11 02/16/18 08:11 Intake & Output 02/15/18 02/16/18 02/17/18 06:59 06:59 06:59 Intake Total 8826 3153 Output Total 1200 200 Balance 7626 2953 Weight 101.9 kg 108.5 kg General appearance: PRESENT: no acute distress Respiratory exam: PRESENT: symmetrical, unlabored Rectal exam: PRESENT: deferred Results Laboratory Results: 02/16/18 04:05 02/16/18 04:05 02/16/18 02/16/18 04:05 04:05 WBC 4.2 RBC 3.37 L Hgb 9.6 L Hct 28.3 L MCV 84 MCH 28.5 MCHC 33.9 RDW 15.7 H Plt Count 182 Seg Neutrophils % 68.5 Lymphocytes % 20.3 Monocytes % 10.3 Eosinophils % 0.2 Basophils % 0.7 Absolute Neutrophils 2.8 Absolute Lymphocytes 0.8 Absolute Monocytes 0.4 Absolute Eosinophils 0.0 Absolute Basophils 0.0 Sodium 145.3 H Potassium 3.5 L Chloride 111 H Carbon Dioxide 26 Anion Gap 8 BUN 18 Creatinine 0.94 Est GFR ( Amer) > 60 Est GFR (Non-Af Amer) > 60 Glucose 76 Calcium 8.1 L Impressions: Chest X-Ray 02/13/18 18:17 IMPRESSION: Possible right pulmonary nodule as described. Head CT 02/13/18 18:17 IMPRESSION: NORMAL BRAIN CT WITHOUT CONTRAST. Limited by lack of IV contrast. EVIDENCE OF ACUTE STROKE: NO. Qualifiers - * PATIENT BEING DISCHARGED WITH ANY OF THE FOLLOWING DIAGNOSIS: No Plan Time Spent: Greater than 30 Minutes
[2018-02-16] MEDS ORDERED: CIPROFLOXACIN HCL 500 MG TABLET PO ONE (12:30)
[2018-02-16 12:33] VITALS: BP 128/70
[2018-02-16] MEDS ORDERED: CIPROFLOXACIN HCL 500 MG TABLET PO SCH (22:00)
== END 2018-02-16 13:25 | disposition home or self-care (01) | DRG 872 ==
LOC: ER 17:56 → EH 21:48 → 4N 23:26
PROVIDERS: ADMIT Internal Medicine; ATTEND Internal Medicine
DX: A41.9 Sepsis, unspecified organism (principal); N17.9 Acute kidney failure, unspecified; N39.0 Urinary tract infection, site not specified; C79.51 Secondary malignant neoplasm of bone; I10 Essential (primary) hypertension; E11.9 Type 2 diabetes mellitus without complications; R51 Headache; E78.00 Pure hypercholesterolemia, unspecified; C61 Malignant neoplasm of prostate; R31.9 Hematuria, unspecified; B96.4 Proteus (mirabilis) (morganii) as the cause of diseases classified elsewhere; Z79.899 Other long term (current) drug therapy; Z79.4 Long term (current) use of insulin; Z90.79 Acquired absence of other genital organ(s); Z87.891 Personal history of nicotine dependence; Z88.6 Allergy status to analgesic agent; Z88.8 Allergy status to other drugs, medicaments and biological substances; Z82.49 Family history of ischemic heart disease and other diseases of the circulatory system
CPT/HCPCS: 36415; 70450; 71046; 80048; 80053; 81001; 82962; 83036; 83605; 83690; 83735; 84100; 85025; 87040; 87086; 87088; 87186; 93005; 93010; 96365; 99285; J0692; J0696; J1650; J3490; J7030; J7512